=== PATIENT | female | born 1995 | race Caucasian/White ===

== ENCOUNTER 2017-06-29 21:18 | Emergency (ER) | payer MEDICAID ==
[2010-04-11 19:48] VITALS: BMI 23.0
[2017-06-29 22:11] LABS: APPEARANCE CLEAR (CLEAR); BILIRUBIN NEGATIVE (NEGATIVE); COLOR YELLOW (YELLOW); GLUCOSE NEGATIVE (NEGATIVE); KETONE NEGATIVE (NEGATIVE); NITRITE NEGATIVE (NEGATIVE); PROTEIN NEGATIVE (NEGATIVE); SPECIFIC GRAVITY 1.015 (1.005-1.020); UROBILINOGEN NORMAL (NORMAL)
[2017-06-29 22:20] LABS: BASOPHILS 0.2 % (0-2); EOSINOPHILS 1.2 % (0-7); HEMATOCRIT 36.3 % (36.0-48.0); HEMOGLOBIN 12.7 g/dL (12-16); IMMATURE GRANULOCYTES 0.2 % (0-5); LYMPHOCYTES 32.6 % (15-50); MCH 31.1 pg (26.0-34.0); MCV 88.8 fL (80.0-100.0); MONOCYTES 8.6 % (2-11); NEUTROPHILS 57.2 % (40-80); PLATELET COUNT 239 10x3/uL (130-400); RBC 4.09 10x6/uL (4.00-5.40); WBC 6.6 10x3/uL (4.8-10.8)
[2017-06-29 22:27] LABS: CALC OSMOLALITY 275 mosm/kg (275-300); CALCIUM 8.8 mg/dL (8.5-10.1); CARBON DIOXIDE 29.3 mmol/L (21.0-32.0); CHLORIDE - SERUM 101 mmol/L (98-107); CREATININE - SERUM 0.5 mg/dL (0.6-1.3); GLUCOSE 93 mg/dL (74-106); POTASSIUM - SERUM 3.1 mmol/L (3.5-5.1); SODIUM 139 mmol/L (136-145); UREA NITROGEN 6 mg/dL (7-18); eGFR NON AFRICAN AMERICAN > 90 mL/min (90-120)
== END 2017-06-29 22:44 | disposition home or self-care (01) ==
LOC: D.ER 21:18
PROVIDERS: Emergency Medicine
DX: O21.9 Vomiting of pregnancy, unspecified (principal); Z3A.10 10 weeks gestation of pregnancy; E87.6 Hypokalemia

== ENCOUNTER 2018-11-30 11:10 | Emergency (ER) | payer MEDICAID ==
[~2018-11-30] VITALS: Ht 172.7 cm; Wt 82.4 kg
[2018-11-30 11:19] VITALS: Ht 172.7 cm; Wt 82.4 kg
[2018-11-30] MEDS ORDERED: AMOXICILLIN500 M1 PO (11:21)
[2018-11-30] MEDS ORDERED: MIRENA (11:23)
[2018-11-30 11:57] LABS: APPEARANCE CLOUDY (CLEAR); BILIRUBIN NEGATIVE (NEGATIVE); COLOR YELLOW (YELLOW); GLUCOSE NEGATIVE (NEGATIVE); KETONE NEGATIVE (NEGATIVE); NITRITE NEGATIVE (NEGATIVE); PROTEIN NEGATIVE (NEGATIVE); UROBILINOGEN NORMAL (NORMAL)
[2018-11-30 11:59] LABS: BACTERIA MODERATE /hpf (NONE SEEN); EPITHELIAL CELLS 0-5 /hpf (0-5); RED CELLS - URINE 0-5 /hpf (0-5)
[2018-11-30] MEDS ORDERED: MACROBID100 MG PO (12:45)
[2018-11-30 12:57] LABS: HCG URINE NEGATIVE (NEGATIVE)
[2018-11-30 12:59] VITALS: BP 114/60
== END 2018-11-30 13:00 | disposition home or self-care (01) ==
LOC: D.ER 11:10
PROVIDERS: Family Medicine
DX: N39.0 Urinary tract infection, site not specified (principal)

== ENCOUNTER 2020-10-01 22:59 | Emergency (ER) | payer BC ==
[~2020-10-01] VITALS: Ht 172.7 cm; Wt 90.0 kg
[~2020-10-01 22:59] MED LIST: AMOXICILLIN500 M1 PO; FLAGYL500 MG PO; MACROBID100 MG PO; MIRENA
[2020-10-01 23:14] VITALS: BP 126/76; Ht 172.7 cm; Wt 90.0 kg
[2020-10-01] MEDS ORDERED: CYCLOBENZAPRINE10 MG PO (23:27)
[2020-10-01 23:56] LABS: HCG URINE NEGATIVE (NEGATIVE)
[2020-10-02 00:03] LABS: BILIRUBIN NEGATIVE (NEGATIVE); KETONE NEGATIVE mg/dL (< 1+); NITRITE NEGATIVE (NEGATIVE); PH 7.5 (5.0-8.0); SQUAMOUS EPITHELIAL 15 HPF (0-4); UROBILINOGEN 2 mg/dL (< 2); WHITE CELLS - URINE 9 HPF (0-4)
== END 2020-10-02 00:45 | disposition home or self-care (01) ==
LOC: D.ER 22:59
PROVIDERS: Family Medicine
DX: T14.8XXA Other injury of unspecified body region, initial encounter (principal); S16.1XXA Strain of muscle, fascia and tendon at neck level, initial encounter; Y04.2XXA Assault by strike against or bumped into by another person, initial encounter; Y93.9 Activity, unspecified; Y92.9 Unspecified place or not applicable; R07.9 Chest pain, unspecified; M54.9 Dorsalgia, unspecified; R10.9 Unspecified abdominal pain; M54.2 Cervicalgia